=== PATIENT | female | born 1980 | race Caucasian/White ===

== ENCOUNTER 2020-06-10 21:18 | Emergency (ER) | payer BC ==
[~2020-06-10] VITALS: Ht 165.1 cm; Wt 58.1 kg
[2020-06-10] MEDS ORDERED: AUGMENTIN 500-1 EACH PO (22:41)
[2020-06-10 22:52] VITALS: BP 106/47
== END 2020-06-10 22:53 | disposition home or self-care (01) ==
LOC: M.ERS 21:18
DX: S01.511A Laceration without foreign body of lip, initial encounter (principal); W54.0XXA Bitten by dog, initial encounter; Y93.89 Activity, other specified; Y92.89 Other specified places as the place of occurrence of the external cause; Y99.8 Other external cause status